=== PATIENT | male | born 1970 | race Caucasian/White ===

== ENCOUNTER → 2017-05-06 | Outpatient (CLI) | payer OTHER ==
[~2017-05-06] MED LIST: ISOVUE-370 76% 100ML VIAL (Q9967) As Ordered ONE
--- NOTE | 2017-05-06 15:36 | REP ---
Clinical: Abnormal chest x-ray findings. Technique: Axial contrast enhanced images from the thoracic inlet to the upper abdomen using 100 ml Isovue 370 intravenous contrast material with coronal and sagittal re-formations. Comparison: None. Findings: The bilateral lung tucker are relatively well aerated, symmetric, and clear. No pulmonary parenchymal consolidation, significant nodule or mass lesion is appreciated. A 2 mm noncalcified density along the right major fissure likely represent scar (image 53). No pleural effusion/reaction. No pneumothorax. Tracheobronchial tree is patent. No axillary, hilar, or mediastinal adenopathy. Thoracic aorta, pulmonary vasculature and heart/pericardium are normal. Surrounding musculoskeletal structures are intact. Impression: Normal contrast enhanced chest CT. No acute mediastinal or pleuroparenchymal process. Signed by Guille Taylor MD 05/06/2017 03:28 P
== END ==
LOC: M RAD 14:50
DX: R91.8 Other nonspecific abnormal finding of lung field (principal)